=== PATIENT | male | born 1935 | race Caucasian/White ===

== ENCOUNTER → 2016-09-12 | Outpatient (CLI) | payer OTHER ==
[2016-09-12 15:04] LABS: BASOPHILS # (AUTO) 0.04 10*3/UL; BASOPHILS % (AUTO) 0.6 % (0-1); EOSINOPHILS % (AUTO) 2.2 % (0-8); HEMATOCRIT 33.9 % (42.0-52.0); HEMOGLOBIN 10.2 g/dL (14.0-18.0); IMM GRAN % (AUTO) 0.6 % (0-5); IMM GRAN# (AUTO) 0.04 10*3/UL; LYMPHOCYTES # (AUTO) 1.02 10*3/uL; MEAN CORPUSCULAR HEMOGLOBIN 23.7 PG (27-31); MEAN CORPUSCULAR HGB CONC 30.1 g/dL (33-37); MEAN PLATELET VOLUME 8.9 FL (7.4-12.2); MONOCYTES # (AUTO) 0.89 10*3/UL (0.3-0.8); MONOCYTES % (AUTO) 12.2 % (5-15); NEUTROPHILS # (AUTO) 5.12 10*3/UL; NEUTROPHILS % (AUTO) 70.4 % (50-80); RDW COEFFICIENT OF VARIATION 16.8 % (11.5-14.5); RED BLOOD COUNT 4.31 10^6/uL (4.70-6.10); WHITE BLOOD COUNT 7.27 10^3/uL (4.8-10.8)
[2016-09-12 15:28] LABS: PLATELET MORPHOLOGY COMMENT NORMAL MORPHOLOGY (NORM)
[2016-09-12 15:55] LABS: BILIRUBIN,TOTAL 0.4 mg/dL (0.3-1.2); BUN/CREATININE RATIO 36.36 (6-20); CALCIUM 10.2 mg/dL (8.7-10.7); CREATININE 1.1 mg/dL (0.70-1.50); MAGNESIUM 1.9 mg/dL (1.6-2.4); POTASSIUM 5.1 meq/L (3.8-5.2); TOTAL PROTEIN 7.1 g/dL (6.1-8.0)
== END ==
LOC: LAB 10:52
PROVIDERS: ATTEND Physician Assistant Medical
DX: I10 Essential (primary) hypertension (principal); D50.0 Iron deficiency anemia secondary to blood loss (chronic); E83.42 Hypomagnesemia
CPT/HCPCS: 36415; 80053; 83735; 85025

== ENCOUNTER → 2016-11-06 | Outpatient (CLI) | payer OTHER ==
[2016-11-06 15:02] LABS: BASOPHILS # (AUTO) 0.03 10*3/UL; BASOPHILS % (AUTO) 0.4 % (0-1); EOSINOPHILS # (AUTO) 0.19 10*3/UL; EOSINOPHILS % (AUTO) 2.5 % (0-8); HEMATOCRIT 33.7 % (42.0-52.0); HEMOGLOBIN 10.4 g/dL (14.0-18.0); LYMPHOCYTES # (AUTO) 1.25 10*3/uL; MEAN CORPUSCULAR HEMOGLOBIN 24.2 PG (27-31); MEAN CORPUSCULAR HGB CONC 30.9 g/dL (33-37); MEAN CORPUSCULAR VOLUME 78.6 FL (80-90); MEAN PLATELET VOLUME 9.4 FL (7.4-12.2); MONOCYTES # (AUTO) 0.93 10*3/UL (0.3-0.8); MONOCYTES % (AUTO) 12.4 % (5-15); NEUTROPHILS # (AUTO) 5.09 10*3/UL; NEUTROPHILS % (AUTO) 67.7 % (50-80); RED BLOOD COUNT 4.29 10^6/uL (4.70-6.10)
[2016-11-06 15:12] LABS: BUN/CREATININE RATIO 39.16 (6-20); CALCIUM 10.5 mg/dL (8.7-10.7); SERUM ALBUMIN 3.9 g/dL (3.5-4.8)
[2016-11-06 15:22] LABS: PLATELET MORPHOLOGY COMMENT NORMAL MORPHOLOGY (NORM); RBC MORPHOLOGY COMMENT NORMAL MORPHOLOGY (NORM); WBC MORPHOLOGY COMMENT NORMAL MORPHOLOGY (NORM)
== END ==
LOC: LAB 08:28
PROVIDERS: ATTEND Physician Assistant Medical
DX: D64.9 Anemia, unspecified (principal); I10 Essential (primary) hypertension; N28.9 Disorder of kidney and ureter, unspecified
CPT/HCPCS: 80053; 85025

== ENCOUNTER → 2016-12-13 | Outpatient (CLI) | payer OTHER ==
[2016-12-17 10:31] LABS: PSATOTAL 0.28 ng/mL (<=7.2)
[2016-12-17 11:20] LABS: FREE PSA/PSA RATIO SEE COMMENTS ratio (())
== END ==
LOC: LAB 08:37
PROVIDERS: ATTEND Physician Assistant Medical
DX: C61 Malignant neoplasm of prostate (principal)
CPT/HCPCS: 84153; 84154

== ENCOUNTER → 2017-02-06 | Outpatient (CLI) | payer OTHER ==
[2017-02-06 16:21] LABS: BUN/CREATININE RATIO 27.85 (6-20); CALCIUM 9.9 mg/dL (8.7-10.7); SERUM ALBUMIN 3.6 g/dL (3.5-4.8)
== END ==
LOC: LAB 08:46
PROVIDERS: ATTEND Physician Assistant Medical
DX: R79.89 Other specified abnormal findings of blood chemistry (principal)
CPT/HCPCS: 80053